=== PATIENT | male | born 1960 | race African-American/Black ===

== ENCOUNTER 2019-09-04 14:46 | Emergency (ER) | payer OTHER ==
--- NOTE | 2019-09-04 14:51 | PDOC ---
Rapid Medical Evaluation Time Seen by Provider: 09/04/19 14:47 Medical Evaluation: Allergies Allergy/AdvReac Type Severity Reaction Status Date / Time No Known Allergies Allergy Verified 04/13/14 12:14 09/04/19 14:47 HPI: Headaches x1 month with recent BP medication change PE:No gross deficits ORDERS: Labs CT scan Discharge Disposition - Diagnosis Headache - Referrals - Patient Instructions - Post Discharge Activity
[2019-09-04 14:53] VITALS: TEMP 98; BMI 31.8
[2019-09-04] MEDS ORDERED: SODIUM CHLORIDE 1,000 ML IV SCH (15:00)
[2019-09-04] MEDS ORDERED: METOCLOPRAMIDE HCL INJECTION 10 MG/2 ML VIAL IVPUSH ONE (15:56)
--- NOTE | 2019-09-04 15:56 | PDOC ---
History of Present Illness - General Chief Complaint: Blood Pressure Problem Stated Complaint: PAIN Time Seen by Provider: 09/04/19 14:47 History Source: Patient Exam Limitations: No Limitations - History of Present Illness Initial Comments: 09/04/19 15:55 CHIEF COMPLAINT: HISTORY OF PRESENT ILLNESS: This is a 59-year-old male with a history of HTN and chronic back pain s/p spinal fusion surgery who presented to his PCP for evaluation of "pounding headache" today. He was referred here for further evaluation by the covering doctor. The patient reports gradual onset of headache since yesterday. He denies any associated visual changes, nausea/vomiting, fevers/chills, focal weakness or numbness, change in speech, dizziness, difficulty walking, or any other symptoms. He reports that he was on Losartan/HCTZ combination pill and that since his pharmacy changed his regimen to two separate tablets that he has not had well-controlled blood pressure. V/s on arrival are notable for BP 142/102. REVIEW OF SYSTEMS: GENERAL/CONSTITUTIONAL: No fever or chills. No weakness. No weight change. HEAD, EYES, EARS, NOSE AND THROAT: No change in vision. No ear pain or discharge. No sore throat. CARDIOVASCULAR: No chest pain or palpitations. RESPIRATORY: No cough, wheezing, or shortness of breath. GASTROINTESTINAL: No nausea, vomiting, diarrhea, or constipation. GENITOURINARY: No dysuria, frequency, or change in urination. MUSCULOSKELETAL: No joint or muscle swelling or pain. No neck or back pain. SKIN: No rash or easy bruising. NEUROLOGIC: See HPI. PSYCHIATRIC: No depression or anxiety. ENDOCRINE: No increased thirst. No abnormal weight change. HEMATOLOGIC/LYMPHATIC: No anemia, easy bleeding, or history of blood clots. ALLERGIC/IMMUNOLOGIC: No hives or skin allergy. No latex allergy. PHYSICAL EXAM: GENERAL: The patient is awake, alert, and fully oriented, in no acute distress. HEAD: Normal with no signs of trauma. ENT: Pupils equal, round and reactive to light, extraocular movements intact, sclera anicteric, conjunctiva clear. Neck supple. LUNGS: Clear to auscultation bilaterally. Normal excursion. No respiratory distress or use of accessory muscles. CV: RRR, S1/S2, no MRG. Cap refill < 2 sec. ABDOMEN: Soft, non-distended, gravid uterus palpable below umbilicus. EXTREMITIES: Normal range of motion, no edema. NEUROLOGICAL: Normal speech, normal gait. CN II-XII grossly intact. NIHSS=0. PSYCH: Normal mood, normal affect. SKIN: Warm, dry, normal turgor, no rashes or lesions noted. 09/04/19 16:23 NIH Stroke Scale - Last Known Well Date/Time & Onset Date Last Known Well: 09/03/19 - Initial Evaluation Level of consciousness: Alert Ask patient the month and their age: Answers both correctly Ask patient to open & close eyes; make fist and let go: Obeys both correctly Best gaze (horizontal eye movement): Normal Visual field testing: No visual field loss Facial paresis (Show teeth/raise eyebrows/close eyes tight): Normal symmetrical movement Motor Function: Left Arm: Normal Motor Function: Right Arm: Normal (extends arm 90 (or 45) degrees for 10 seconds without drift Motor Function: Left Leg: Normal (extends leg 30 degrees for 5 seconds without drift) Motor Function: Right Leg: Normal (extends leg 30 degrees for 5 seconds without drift) Limb Ataxia: No ataxia Sensory(Use pinprick test arms,legs,trunk,face/side to side): Normal Best language (Describe picture, name items, read sentences): No Aphasia Dysarthria (read several words): Normal articulation Extinction and Inattention: No abnormality - Total Score NIH Stroke Scale Score: 0 Past History - Travel Traveled outside of the country in the last 30 days: No Close contact w/someone who was outside of country & ill: No - Past Medical History Allergies/Adverse Reactions: Allergies Allergy/AdvReac Type Severity Reaction Status Date / Time No Known Allergies Allergy Verified 09/04/19 14:53 Home Medications: Ambulatory Orders Nifedipine [Procardia Xl] 30 mg PO DAILY #10 tab.er.24 09/04/19 COPD: No HTN: Yes Hypercholesterolemia: Yes Thyroid Disease: Yes - Psycho Social/Smoking Cessation Hx Smoking History: Never smoked Have you smoked in the past 12 months: No Number of Cigarettes Smoked Daily: 0 If you are a former smoker, when did you quit?: 2009 Hx Alcohol Use: No Drug/Substance Use Hx: No Substance Use Type: None Hx Substance Use Treatment: No *Physical Exam - Vital Signs Last Vital Signs Temp Pulse Resp BP Pulse Ox 98 F 95 H 18 142/102 H 98 09/04/19 14:47 09/04/19 14:47 09/04/19 14:47 09/04/19 14:47 09/04/19 14:47 ED Treatment Course - LABORATORY CBC & Chemistry Diagram: 09/04/19 Unknown Medical Decision Making - Medical Decision Making 09/04/19 16:25 A/P: 59-year-old male with HTN and headache; no focal neurologic deficits on exam. -Basic labs and UA to rule out end-organ damage -Reglan/benadryl/Tylenol/fluids for headache -Re-eval BP and consider treating if remains elevated when BP controlled Discharge - Discharge Information Problems reviewed: Yes Clinical Impression/Diagnosis: Essential (primary) hypertension Headache Qualifiers: Headache type: other headache syndrome Qualified Code(s): G44.89 - Other headache syndrome Disposition: HOME - Additional Discharge Information Prescriptions: Nifedipine [Procardia Xl] 30 mg PO DAILY #10 tab.er.24 - Follow up/Referral Referrals: Marc Aguilar MD [Primary Care Provider] - - Patient Discharge Instructions Patient Printed Discharge Instructions: DI for High Blood Pressure, How to Monitor Your Blood Pressure at Home Additional Instructions: Take your home blood pressure medication and to prescribe medication daily. Check your blood pressure daily at home and follow-up with your primary care next 3 to 5 days for reassessment of her blood pressure - Post Discharge Activity
[2019-09-04] MEDS ORDERED: ACETAMINOPHEN 325 MG TABLET (FP) ONE (16:49)
[2019-09-04] MEDS ORDERED: METOCLOPRAMIDE HCL INJECTION 10 MG/2 ML VIAL ONE (16:50)
[2019-09-04 16:58] LABS: CHOLESTEROL 185 mg/dL (50-200); HDL CHOLESTEROL 50 mg/dL (40-60); LDL CHOLESTEROL (ONLY SJRH) 104 mg/dL (5-100); TRIGLYCERIDES 181 mg/dL (0-150)
[2019-09-04 17:13] LABS: INR 0.97 (0.83-1.09); PROTHROMBIN TIME (PATIENT) 11.5 SEC (9.7-13.0)
[2019-09-04 17:16] LABS: ACTIVATED PTT 28.4 SECONDS (25.2-36.5)
[2019-09-04 17:18] LABS: BASO % 0.3 % (0-2.0); EOS % 0.2 % (0-4.5); HEMATOCRIT 46.6 % (35.4-49); HEMOGLOBIN 14.9 GM/dL (11.7-16.9); MCH 26.9 pg (25.7-33.7); MCHC 32.1 g/dl (32.0-35.9); MEAN CELL VOLUME 83.7 fl (80-96); MEAN PLT VOLUME 9.2 fl (7.5-11.1); MONO % 10.4 % (3.8-10.2); NEUT % 67.1 % (42.8-82.8); PLATELET COUNT 218 K/MM3 (134-434); RBC 5.56 M/mm3 (4.00-5.60); RDW 13.8 % (11.9-15.9); WHITE BLOOD COUNT 13.7 K/mm3 (4.0-10.0)
[2019-09-04] MEDS: ACETAMINOPHEN 500 MG TABLET (FP) PO ONE ×2 (18:25→18:29)
[2019-09-04] MEDS ORDERED: NIFEdipine E.R. 30 MG TABLET (FP) ONE (18:51)
[2019-09-04] MEDS ORDERED: NIFEdipine E.R. 30 MG TABLET (FP) PO ONE (18:53)
--- NOTE | 2019-09-04 18:59 | PDOC ---
*Physical Exam - Vital Signs Last Vital Signs Temp Pulse Resp BP Pulse Ox 98 F 95 H 18 142/102 H 98 09/04/19 14:47 09/04/19 14:47 09/04/19 14:47 09/04/19 14:47 09/04/19 14:47 - Physical Exam General Appearance: Yes: Nourished, Appropriately Dressed, Apparent Distress HEENT: positive: Normal ENT Inspection Neck: positive: Supple Respiratory/Chest: positive: Lungs Clear, Normal Breath Sounds. negative: Respiratory Distress, Accessory Muscle Use Cardiovascular: positive: Regular Rhythm, Regular Rate Musculoskeletal: positive: Normal Inspection Extremity: positive: Normal Inspection Integumentary: positive: Normal Color Neurologic: positive: darkroom worker II-XII NML intact, Fully Oriented, Alert, Normal Mood/ Affect, Normal Response, Motor Strength 12/28 ED Treatment Course - LABORATORY CBC & Chemistry Diagram: 09/04/19 Unknown - ADDITIONAL ORDERS Additional order review: Laboratory Results 09/04/19 09/04/19 16:00 16:00 PT with INR 11.50 INR 0.97 PTT (Actin FS) 28.4 Triglycerides 181 H Cholesterol 185 Total LDL Cholesterol 104 H HDL Cholesterol 50 09/04/19 Unknown RBC 5.56 MCV 83.7 MCHC 32.1 RDW 13.8 MPV 9.2 Neutrophils % 67.1 Lymphocytes % 22.0 Monocytes % 10.4 H Eosinophils % 0.2 D Basophils % 0.3 - Medications Given in the ED: ED Medications Discontinued Medications Generic Name Dose Route Start Last Admin Trade Name Malvin PRN Reason Stop Dose Admin Acetaminophen 975 mg 09/04/19 15:56 09/04/19 18:29 Tylenol - PO 09/04/19 15:57 Not Given ONCE ONE Diphenhydramine HCl 12.5 mg 09/04/19 15:57 09/04/19 18:27 Benadryl Injection - IVPUSH 09/04/19 15:58 Not Given ONCE ONE Metoclopramide HCl 10 mg 09/04/19 15:56 09/04/19 18:27 Reglan Injection - IVPUSH 09/04/19 15:57 Not Given ONCE ONE Medical Decision Making - Medical Decision Making 09/04/19 19:02 I assumed care of this 59-year-old male with history of blood pressure on losartan and hydrochlorothiazide sent seen by PCP for evaluation of persistent elevated BPs and headache. Patient report he has address issue with PCP multiple times due to change of medication as he uses a combination medication now and take individual medication which has not been helping him. Patient reported he felt he needed new medication. Denies dizziness, blurry vision, nausea, vomiting. Patient reported had a headache which he took aspirin and headache is improved. Clinical exam unremarkable with normal neuro exam. CBC, CMP, PT and PTT labs with no acute abnormality. Head CT without contrast unremarkable. Patient reported no symptoms now. Patient stable for discharge and will add Procardia to BP meds and advised patient to continue BP check for the next 7 days and follow-up with PCP in 3 to 5 days for reassessment and to decide if Procardia will be better for him instead of medication he was taking at home. Patient stable for discharge Discharge - Discharge Information Problems reviewed: Yes Clinical Impression/Diagnosis: Essential (primary) hypertension Headache Qualifiers: Headache type: other headache syndrome Qualified Code(s): G44.89 - Other headache syndrome Disposition: HOME - Admission No - Additional Discharge Information Prescriptions: Nifedipine [Procardia Xl] 30 mg PO DAILY #10 tab.er.24 - Follow up/Referral Referrals: Marc Aguilar MD [Primary Care Provider] - - Patient Discharge Instructions Patient Printed Discharge Instructions: DI for High Blood Pressure, How to Monitor Your Blood Pressure at Home Additional Instructions: Take your home blood pressure medication and to prescribe medication daily. Check your blood pressure daily at home and follow-up with your primary care next 3 to 5 days for reassessment of her blood pressure - Post Discharge Activity
[2019-09-04 19:08] VITALS: BP 0/0
[2019-09-04 19:09] VITALS: PULSE 80
--- NOTE | 2019-09-05 09:18 | EKG ---
Test Reason : Blood Pressure : / mmHG Vent. Rate : 077 BPM Atrial Rate : 077 BPM P-R Int : 194 ms QRS Dur : 092 ms QT Int : 356 ms P-R-T Axes : 069 007 045 degrees QTc Int : 402 ms NORMAL SINUS RHYTHM NORMAL ECG WHEN COMPARED WITH ECG OF 14-JUL-2013 11:58, CRITERIA FOR INFERIOR INFARCT ARE NO LONGER PRESENT NONSPECIFIC T WAVE ABNORMALITY NO LONGER EVIDENT IN INFERIOR LEADS Confirmed by NEERAJ CHAU, LINDA ([id number]) on 09/05/2019 9:18:20 AM Referred By: Confirmed By:LINDA PICKARD MD
== END 2019-09-04 19:11 | disposition home or self-care (01) ==
LOC: JER 14:46
PROC: 3E033GC Introduction of Other Therapeutic Substance into Peripheral Vein, Percutaneous Approach (ICD-10-PCS; principal; 2019-09-04)
PROC: 3E033GC Introduction of Other Therapeutic Substance into Peripheral Vein, Percutaneous Approach (ICD-10-PCS; 2019-09-04)
DX: I10 Essential (primary) hypertension (principal); R51 Headache; E78.00 Pure hypercholesterolemia, unspecified; E07.9 Disorder of thyroid, unspecified; M54.89 Other dorsalgia; G89.29 Other chronic pain; Z98.1 Arthrodesis status
CPT/HCPCS: 36415; 70450-TC; 80061; 83721; 85025; 85610; 85730; 93005; 93010; 96374; 96375; 99283-25; J7030

== ENCOUNTER 2021-12-15 05:37 | Day surgery (SDC) | payer OTHER ==
[2021-12-14 08:33] VITALS: BMI 31.1
[2021-12-15] MEDS ORDERED: GENTAMICIN SO4 80 MG/2 ML VIAL ONE (10:26)
[2021-12-15] MEDS ORDERED: BUPIVACAINE HCL/PF 0.5% (5MG/ML) 10 ML VIAL ONE (10:27)
[2021-12-15] MEDS ORDERED: MIDAZOLAM HCL 2 MG/2 ML SINGLE DOSE VIAL ONE (11:51)
[2021-12-15] MEDS ORDERED: ceFAZolin SODIUM 1 GM VIAL IVPB ONE (11:55)
[2021-12-15] MEDS ORDERED: LIDOCAINE HCL 1%, 10 MG/ML (20ML VIAL) INF ONE (11:57)
[2021-12-15] MEDS ORDERED: BUPIVACAINE HCL/PF 0.5% (5MG/ML) 10 ML VIAL IJ ONE (11:57)
[2021-12-15] MEDS ORDERED: GENTAMICIN SO4 80 MG/2 ML VIAL IVPB ONE (12:27)
[2021-12-15 13:59] VITALS: TEMP 97.7
[2021-12-15 14:01] VITALS: BP 132/74; PULSE 78
== END 2021-12-15 13:45 | disposition home or self-care (01) ==
LOC: JASU-SURG 05:37
PROVIDERS: ATTEND Podiatrist
PROC: 0QBQ0ZZ Excision of Right Toe Phalanx, Open Approach (ICD-10-PCS; 2021-12-15)
PROC: 0HTRXZZ Resection of Toe Nail, External Approach (ICD-10-PCS; principal; 2021-12-15 12:30)
DX: L60.0 Ingrowing nail (principal); D16.31 Benign neoplasm of short bones of right lower limb
CPT/HCPCS: 73630-TC-RT-FY; 88300-TC

== ENCOUNTER 2022-11-20 05:31 | Day surgery (SDC) | payer OTHER ==
[2022-11-16 10:50] VITALS: BMI 30.7
[2022-11-20 12:47] VITALS: BP 116/77; PULSE 69; RESP 15; TEMP 98
== END 2022-11-20 12:49 | disposition home or self-care (01) ==
LOC: JASU-ENDO 05:31
PROVIDERS: ATTEND Student in an Organized Health Care Education/Training Program
PROC: 0DBP8ZX Excision of Rectum, Via Natural or Artificial Opening Endoscopic, Diagnostic (ICD-10-PCS; principal; 2022-11-20 11:00)
DX: Z12.11 Encounter for screening for malignant neoplasm of colon (principal); K62.1 Rectal polyp; K57.30 Diverticulosis of large intestine without perforation or abscess without bleeding; K64.8 Other hemorrhoids
CPT/HCPCS: 88305-TC

== ENCOUNTER 2024-07-07 05:06 | Day surgery (SDC) | payer OTHER ==
[2024-07-03 10:24] VITALS: BMI 28.8
[2024-07-07] MEDS ORDERED: CEFAZOLIN SODIUM 2 GM in DEXTROSE 5%-WATER 100 ML IVPB ONE (13:15)
[2024-07-07] MEDS ORDERED: BUPIVACAINE HCL/PF 0.25% (2.5MG/ML) 10 ML VIAL ONE ×3 (13:32→13:55)
[2024-07-07] MEDS ORDERED: ONDANSETRON 4 MG/2 ML VIAL IVPUSH PRN (13:53)
[2024-07-07] MEDS ORDERED: oxyCODONE HCL 5 MG TABLET PO PRN (13:53)
[2024-07-07] MEDS ORDERED: LACTATED RINGERS SOLUTION 1,000 ML IV SCH (14:00)
[2024-07-07] MEDS ORDERED: ROCURONIUM BROMIDE 50 MG/5 ML SYRINGE ONE ×2 (14:15→14:46)
[2024-07-07] MEDS ORDERED: PROPOFOL 20 ML ONE (14:15)
[2024-07-07] MEDS ORDERED: MIDAZOLAM HCL 2 MG/2 ML SINGLE DOSE VIAL ONE (14:15)
[2024-07-07] MEDS ORDERED: ceFAZolin SODIUM 1 GM VIAL ONE ×2 (14:34)
[2024-07-07] MEDS ORDERED: ONDANSETRON 4 MG/2 ML VIAL ONE (14:43)
[2024-07-07] MEDS ORDERED: DEXAMETHASONE SOD PHOSPHATE 4 MG/1 ML VIAL ONE (14:43)
[2024-07-07] MEDS ORDERED: KETOROLAC TROMETHAMINE 30 MG/1 ML VIAL ONE (14:44)
[2024-07-07] MEDS: ceFAZolin SODIUM 1 GM VIAL IVPB ONE (14:45)
[2024-07-07] MEDS: BUPIVACAINE HCL/PF 0.25% (2.5MG/ML) 10 ML VIAL IJ ONE (15:00)
[2024-07-07] MEDS ORDERED: ACETAMINOPHEN INJECTION 100 ML ONE (15:45)
[2024-07-07] MEDS ORDERED: SUGAMMADEX SODIUM 200 MG/2 ML VIAL ONE (16:11)
[2024-07-07 17:29] VITALS: RESP 16
[2024-07-07 18:35] VITALS: BP 133/90; PULSE 80; TEMP 98.4
== END 2024-07-07 18:35 | disposition home or self-care (01) ==
LOC: JASU-SURG 05:06
PROVIDERS: ATTEND Surgery
PROC: 0DQV4ZZ Repair Mesentery, Percutaneous Endoscopic Approach (ICD-10-PCS; principal; 2024-07-07 11:30)
DX: K40.90 Unilateral inguinal hernia, without obstruction or gangrene, not specified as recurrent (principal); K42.9 Umbilical hernia without obstruction or gangrene
CPT/HCPCS: 88302-TC; 94760; C1781; J0131